=== PATIENT | female | born 1965 | race Caucasian/White ===

== ENCOUNTER → 2018-01-05 | Outpatient (CLI) | payer OTHER ==
[~2018-01-05] MED LIST: ACET325T14 PO; DOXY100T PO; PSYL575P16 PO
== END ==
LOC: STAR 08:43
PROVIDERS: ATTEND Surgery
DX: Z02.9 Encounter for administrative examinations, unspecified (principal)

== ENCOUNTER 2018-01-09 05:54 | Day surgery (SDC) | payer OTHER ==
[~2018-01-09] VITALS: Ht 172.7 cm; Wt 64.3 kg
[~2018-01-09 05:54] MED LIST changes: -ACET325T14 PO
[2018-01-09] MEDS ORDERED: BUPIVACAINE/PF 0.5% ONE (06:06)
[2018-01-09] MEDS ORDERED: EPINEPHRINE 1 MG/ML, 1ML ONE (06:06)
[2018-01-09] MEDS ORDERED: ACET325T14 PO (06:22)
[2018-01-09] MEDS ORDERED: LACTATED RINGERS 1,000 ML IV SCH (06:22)
[2018-01-09 06:26] VITALS: BP 112/77
[2018-01-09 06:40] LABS: HCG UR SG 1.031 (1.003-1.030)
[2018-01-09] MEDS ORDERED: MIDAZOLAM 1 MG/ML, 2ML ONE (07:22)
[2018-01-09] MEDS ORDERED: FENTANYL PF 250 MCG/5ML ONE (07:22)
[2018-01-09] MEDS ORDERED: PROPOFOL 10 MG/ML, 20ML ONE (07:23)
[2018-01-09] MEDS ORDERED: LIDOCAINE-MPF 2% ,5ML ONE (07:23)
[2018-01-09] MEDS ORDERED: PHENYLEPHRINE 10 MG/ML ONE (07:26)
[2018-01-09] MEDS ORDERED: SODIUM CHLORIDE 0.9% PF 10ML ONE (07:26)
[2018-01-09] MEDS ORDERED: CEFAZOLIN 1,000 MG ONE ×2 (07:26)
[2018-01-09] MEDS ORDERED: NEOSTIGMINE 1 MG/ML, 10ML ONE (08:36)
[2018-01-09] MEDS ORDERED: KETOROLAC 30 MG/1 ML ONE (08:48)
[2018-01-09] MEDS ORDERED: DEXAMETHASONE 4 MG/ML, 1ML ONE ×2 (08:48)
[2018-01-09] MEDS ORDERED: ONDANSETRON 2MG/ML, 2ML ONE ×3 (08:48)
[2018-01-09] MEDS ORDERED: OXYcodone 5 MG/5 ML ORAL.SOL UDC PO PRN (09:30)
[2018-01-09] MEDS ORDERED: HYDROmorphone 1 MG/ML, 1ML IV PRN (09:30)
[2018-01-09] MEDS ORDERED: PROMETHAZINE 12.5 MG SUPP PR PRN (09:30)
[2018-01-09] MEDS ORDERED: MEPERIDINE/PF 25MG/0.5ML IVPush PRN (09:30)
[2018-01-09] MEDS ORDERED: ACETAMINOPHEN 325 MG TABLET PO PRN (09:30)
[2018-01-09] MEDS ORDERED: hydrALAzine 20 MG/ML, 1ML IV PRN (09:30)
[2018-01-09] MEDS ORDERED: LABETALOL 5MG/ML, 20ML IV PRN (09:30)
[2018-01-09] MEDS ORDERED: ONDANSETRON 2MG/ML, 2ML IVPush PRN (09:30)
[2018-01-09] MEDS: FENTANYL PF 100 MCG/2ML IV PRN ×2 (09:45→09:53)
[2018-01-09] MEDS ORDERED: ACETAMINOPHEN 650 MG/20.3 ML UDC ONE (09:48)
[2018-01-09] MEDS ORDERED: OXYcodone 5 MG/5 ML ORAL.SOL UDC ONE (09:48)
[2018-01-09] MEDS ORDERED: ACETAMINOPHEN 325 MG TABLET ONE (09:48)
[2018-01-09] MEDS ORDERED: FENTANYL PF 100 MCG/2ML ONE (09:49)
== END 2018-01-09 12:15 ==
LOC: OUT 05:54
PROVIDERS: ATTEND Surgery
DX: R59.1 Generalized enlarged lymph nodes (principal); Z98.890 Other specified postprocedural states; Z72.89 Other problems related to lifestyle; Z88.0 Allergy status to penicillin
CPT/HCPCS: 38500; 81025; 88305; J0171; J0690; J1100; J1885; J2250; J2370; J2405; J2704; J2710; J3010; J3490; J7120